=== PATIENT | female | born 1965 | race Caucasian/White ===

== ENCOUNTER → 2021-02-01 15:13 | Outpatient (CLI) | payer OTHER, SELFPAY ==
--- NOTE | ~2021-02-01 | MM_ITS ---
EXAMINATION: MM screening leif BI w ayesha HISTORY: Screening TECHNIQUE: Craniocaudal and mediolateral oblique 3-D tomosynthesis images were obtained and synthetic 2-D images were generated. CAD analysis was submitted and interpreted. COMPARISON: No prior mammogram is available for comparison at this institution. BREAST PARENCHYMAL COMPOSITION: There are scattered areas of fibroglandular density. FINDINGS: There is no evidence of suspicious mass, calcification, or architectural distortion to sugg est malignancy in either breast. There has been no suspicious interval change. IMPRESSION: 1. No mammographic evidence of malignancy. 2. Recommend routine screening mammography in one year. BI-RADS Category 1: Negative Reviewed, dictated and finalized at location A.
== END ==
PROVIDERS: PCP Family Medicine; Visit Provider Nurse Practitioner Family
DX: Z12.31 Encounter for screening mammogram for malignant neoplasm of breast (principal)
CPT/HCPCS: 77063; 77067

== ENCOUNTER → 2022-05-12 12:16 | Outpatient (CLI) | payer OTHER, SELFPAY ==
--- NOTE | ~2022-05-12 | MM_ITS ---
EXAMINATION: MM screening leif BI w ayesha HISTORY: Screening TECHNIQUE: Craniocaudal and mediolateral oblique 3-D tomosynthesis images were obtained and synthetic 2-D images were generated. CAD analysis was submitted and interpreted. COMPARISON: 02/01/2021 BREAST PARENCHYMAL COMPOSITION: Breast composition is almost entirely fatty FINDINGS: There is no evidence of suspicious mass, calcification, or architectural distortion to sugg est malignancy in either breast. There has been no suspicious interval change. IMPRESSION: 1. No mammographic evidence of malignancy. 2. Recommend routine screening mammography in one year. BI-RADS Category 1: Negative Reviewed, dictated and finalized at location A.
== END ==
PROVIDERS: PCP Family Medicine; Visit Provider Family Medicine
DX: Z12.31 Encounter for screening mammogram for malignant neoplasm of breast (principal)
CPT/HCPCS: 77063; 77067

== ENCOUNTER 2024-01-22 10:46 | Emergency (ER) | payer BC, SELFPAY ==
--- NOTE | ~2024-01-22 | XR_ITS ---
EXAMINATION: XR chest 2V DATE: 01/22/2024 11:22 INDICATION: Shortness of breath. Cough. Wheezing. TECHNIQUE: Frontal and lateral views of the chest were obtained. COMPARISON: None. FINDINGS: There is no pneumonia, pleural effusion, or pneumothorax. The heart size is normal. IMPRESSION: 1. No acute cardiopulmonary disease. Reviewed, dictated and finalized at location A.
[2024-01-22 11:03] VITALS: BP 149/81; PULSE 71; RESP 18; TEMP 36.2; O2SAT 99
--- NOTE | 2024-01-22 11:09 | ED.URI ---
HPI - URI/Sore Throat General Chief Complaint: Upper Respiratory Infection Stated Complaint: Upper Respiratory Time Seen by Provider: 01/22/24 10:53 Source: patient Mode of arrival: ambulatory Limitations: no limitations History of Present Illness HPI Narrative: Lynn is a 58-year-old female patient presenting to the emergency room today with complaints of shortness of breath, productive cough with dark phlegm, and chest congestion x5 days. No history of smoking. Denies any history of asthma or COPD. Denies any fever chills. States she does have some mild shortness of breath with exertion. MD elicited complaint: sore throat and nasal congestion Related Data Home Medications Medication Instructions Recorded Confirmed brimonidine 0.2 % eye drops 1 drp EACH EYE BID 12/26/21 01/22/24 latanoprost 0.005 % eye drops 1 drp EACH EYE DAILY 12/26/21 01/22/24 cetirizine 10 mg tablet 10 mg PO PRN PRN Allergy Symptoms 01/22/24 01/22/24 duloxetine 20 mg capsule,delayed 20 mg PO DAILY 01/22/24 01/22/24 release levothyroxine 100 mcg tablet 112 mcg PO DAILY 01/22/24 01/22/24 (Synthroid) Allergies Allergy/AdvReac Type Severity Reaction Status Date / Time erythromycin base AdvReac Mild Rash Verified 01/22/24 10:57 Review of Systems Review of Systems: Pertinent positives per HPI. Patient denies any fever, chills, rash, headache, visual changes, dizziness, chest pain, palpitations, nausea, vomiting, diarrhea, constipation, abdominal pain, or any urinary issues. [facility] Past Medical History Medical History Adult BMI 28.0-28.9 kg/sq m Surgical History Surgical History History of left hip replacement Family History Family History Father Cerebrovascular accident Family history of throat cancer Acute myocardial infarction Grandparent Family history of malignant neoplasm of thyroid Other Family history of malignant neoplasm of male breast Social History Social History Alcohol intake: current Drinks per week: 5 Substance use: current Substance use type: marijuana Comments At the time of my signature, I reviewed and agree with the nursing past medical, surgical, social, and family history. There is no relevant family history pertinent to the patient complaint. Exam Narrative: General: Well-developed, well nourished, in no apparent distress Head: Normocephalic, atraumatic Eyes: Pupils equally round and reactive to light bilaterally, EOM intact, sclera and conjunctive clear, no discharge, lids normal Ears: TMs intact and clear, ear canals clear, no drainage, grossly hearing normal. Nose: Nares patent, clear discharge, no inflammation, no sinus tenderness. Mouth: Oral pharynx without lesions or masses, good dentition, MMM. Neck: Supple, trachea midline, no enlargement of anterior or posterior cervical nodes, no thyroid masses or goiter palpable. Cardio: Regular rate and rhythm, s1 and s2 normal, no murmur appreciated. Resp: Lung sounds tight with expiratory wheezing and rhonchi, no rales or rubs Course Course Emergency Course: Portions of this record may have been created with voice recognition software. Level of Care: Express Care Visit Vital Signs Vital signs: Vital Signs Temperature 36.2 C L 01/22/24 11:03 Pulse Rate 71 01/22/24 11:03 Respiratory Rate 18 01/22/24 11:03 Blood Pressure 149/81 H 01/22/24 11:03 Pulse Oximetry 99 01/22/24 11:03 Oxygen Delivery Room Air 01/22/24 11:03 Temperature 36.2 C L 01/22/24 11:03 Pulse Rate 71 01/22/24 11:03 Respiratory Rate 18 01/22/24 11:03 Blood Pressure 149/81 H 01/22/24 11:03 Pulse Oximetry 99 01/22/24 11:03 Oxygen Delivery Room Air 01/22/24 11:03 Vital signs reviewed
[2024-01-22] MEDS: ALBUTEROL SULFATE NEB 2.5 MG/3 ML INH INHALATION (11:26)
[2024-01-22] MEDS: IPRATROPIUM BR 0.02% INH SOLN 0.5 MG/2.5 ML VIAL INHALATION (11:26)
[2024-01-22 11:28] VITALS: PULSE 71; RESP 18; O2SAT 99
[2024-01-22 11:52] VITALS: PULSE 90; RESP 20; O2SAT 99
== END 2024-01-22 11:50 | disposition home or self-care (01) ==
PROVIDERS: Emergency Provider Nurse Practitioner Family
DX: J40 Bronchitis, not specified as acute or chronic (principal); Z96.642 Presence of left artificial hip joint
CPT/HCPCS: 71046; 94640; 99213; G0463

== ENCOUNTER 2024-01-25 14:18 | Emergency (ER) | payer BC, SELFPAY ==
--- NOTE | ~2024-01-25 | XR_ITS ---
EXAMINATION: XR chest 2V DATE: 01/25/2024 18:19 INDICATION: Shortness of breath TECHNIQUE: PA and lateral views of the chest were obtained. COMPARISON: Chest radiograph dated 01/22/2024 FINDINGS: The lungs remain clear with no focal airspace opacities, pulmonary edema, pleural effusion or pneumot horax. The cardiomediastinal silhouette is normal. Mild thoracic spondylosis. IMPRESSION: 1. No acute cardiopulmonary disease. Reviewed, dictated and finalized at location A.
[2024-01-25 14:28] VITALS: BP 160/93; PULSE 87; RESP 18; TEMP 36.5; O2SAT 100
[2024-01-25 16:46] VITALS: BP 135/85; PULSE 77; RESP 13; O2SAT 100
--- NOTE | 2024-01-25 16:48 | PC.NURSE ---
pt states that she used her albuterol inhaler and after a few minutes a coughing attack and wheezing, pt states she used inhaler once yesterday with no problem, but used it twice today and it was with the second use that she felt clammy, short of breath and dizziness, and felt like her legs were jellolike. she took 2 prednisone pills at 10am today. patient states she now feels fine and is breathing well with minimal cough and no wheezing. patient vital signs stable.
[2024-01-25] MEDS: IPRATROPIUM 0.5 MG/ALBUTEROL SULFATE 2.5 MG AMPUL.NEB 3 ML INHALATION (18:00)
[2024-01-25 18:01] VITALS: PULSE 74; RESP 11
--- NOTE | 2024-01-25 18:42 | ED.SOB ---
HPI - SOB/Dyspnea General Chief Complaint: Shortness of Breath/Dyspnea Stated Complaint: sob Time Seen by Provider: 01/25/24 17:07 History of Present Illness HPI Narrative: Patient is a 58-year-old female who presents ER shortness of breath. Acutely worsened after using her albuterol twice today. Associated with racing heart. She was coughing up clear sputum and had runny nose. No fevers or chills. She is currently on daily prednisone for bronchitis she is on day 3. Related Data Home Medications Medication Instructions Recorded Confirmed brimonidine 0.2 % eye drops 1 drp EACH EYE BID 12/26/21 01/22/24 latanoprost 0.005 % eye drops 1 drp EACH EYE DAILY 12/26/21 01/22/24 cetirizine 10 mg tablet 10 mg PO PRN PRN Allergy Symptoms 01/22/24 01/22/24 duloxetine 20 mg capsule,delayed 20 mg PO DAILY 01/22/24 01/22/24 release levothyroxine 100 mcg tablet 112 mcg PO DAILY 01/22/24 01/22/24 (Synthroid) Allergies Allergy/AdvReac Type Severity Reaction Status Date / Time erythromycin base AdvReac Mild Rash Verified 01/25/24 14:29 Review of Systems Constitutional: Constitutional: Reports no additional constitutional complaints ENT: Reports system reviewed and no additional complaints, except as documented Cardiovascular: Cardiovascular: Reports no additional cardiovascular complaints Respiratory: Respiratory: Reports cough, Reports dyspnea and Reports wheezing Gastrointestinal: Gastrointestinal: Reports no additional gastrointestinal complaints PMF Past Medical History Medical History Adult BMI 28.0-28.9 kg/sq m Surgical History Surgical History History of left hip replacement Family History Family History Father Cerebrovascular accident Family history of throat cancer Acute myocardial infarction Grandparent Family history of malignant neoplasm of thyroid Other Family history of malignant neoplasm of male breast Social History Social History Alcohol intake: current Drinks per week: 5 Substance use: current Substance use type: marijuana Exam Narrative: GENERAL: Well-appearing, well-nourished, and in no acute distress. HEAD: Normocephalic, atraumatic. ENT: Mucous membranes moist. CHEST: Faint expiratory wheezing. No respiratory distress. HEART: Regular rate and rhythm. Normal peripheral pulses. EXTREMITIES: Normal range of motion. No edema. SKIN: Warm, dry, no rash. NEURO: Alert and oriented x3. PSYCH: Normal mood and affect. Course Course Emergency Course: patient given a DuoNeb. Improved. Normal chest x-ray. Lung sounds improved. Discharge home. Vital Signs Vital signs: Vital Signs Temperature 97.7 F 01/25/24 14:28 Pulse Rate 87 01/25/24 14:28 Respiratory Rate 18 01/25/24 14:28 Blood Pressure 160/93 H 01/25/24 14:28 Pulse Oximetry 100 01/25/24 14:28 Oxygen Delivery Room Air 01/25/24 14:28 Temperature 97.7 F 01/25/24 14:28 Pulse Rate 74 01/25/24 18:01 Respiratory Rate 11 L 01/25/24 18:01 Blood Pressure 135/85 01/25/24 16:46 Pulse Oximetry 100 01/25/24 16:46 Oxygen Delivery Room Air 01/25/24 17:56 Discharge Plan Discharge Clinical Impression: Bronchitis Patient Disposition: Home, Self-Care Condition: Stable Instructions: Acute Bronchitis (ED) Additional Instructions: Return ER if you have worsening shortness of breath, you can not keep down food /water/ medication, you have fever over 100.4? F, or you have additional concerns. Prescriptions: No Action cetirizine 10 mg tablet 10 mg PO PRN PRN (Reason: Allergy Symptoms) duloxetine 20 mg capsule,delayed release(DR/EC) 20 mg PO DAILY levothyroxine [Synthroid] 100 mcg tablet 112 mcg PO DAILY
[2024-01-25 18:55] VITALS: BP 137/85; PULSE 74; RESP 15; TEMP 37.1; O2SAT 100
== END 2024-01-25 19:11 | disposition home or self-care (01) ==
PROVIDERS: Emergency Provider Emergency Medicine
DX: J40 Bronchitis, not specified as acute or chronic (principal); Z96.642 Presence of left artificial hip joint
CPT/HCPCS: 71046; 94640; 99283